=== PATIENT | female | born 1960 | race Caucasian/White ===

== ENCOUNTER → 2016-08-27 | Outpatient (CLI) | payer OTHER ==
--- NOTE | ~2016-08-27 | CR184 ---
[facility] A Service of [facility] RADIOLOGY TEXT RESULTS PATIENT: MARVIN STUBBS LOCATION: [facility] : 56 UNIT #: [id number] AGE: [address]: Lise Lovett MD SEX: F ORDER DR: [id number] [facility] [address] [place], [place] [address] [id number] O MR#: [id number] Acc #: [id number] NAME: MARVIN STUBBS : 1960 SEX: F STUDY DATE/TIME: 08/27/2016 15:30 UNIT: [facility] ROOM: STUDY DESCRIPTION: CR Lumbar Spine Min 4 Views Attending Physician: Lise Lovett M.D. Referring Physician: Lise Lovett M.D. Ordering Physician: Lise Lovett M.D. Primary Care Physician: Lise Lovett M.D. MEDICAL IMAGING REPORT This report is preliminary unless electronic signature is present EXAM Lumbosacral spine 08/27/1978 COMPARISON STUDIES None. HISTORY Pain. FINDINGS AP and lateral and flexion/extension views of the lumbar spine are obtained. The examination shows mild anterolisthesis of L4-5 by about 2-3 mm. This does not change significantly with flexion and extension. Disc spaces are preserved. There is advanced facet disease from L3-S1. CONCLUSION Grade 1 anterolisthesis of L4-5. Multilevel advanced facet disease. No evidence of motion with flexion/extension Dictated by... Dameon Church M.D. THIS IS AN ELECTRONICALLY VERIFIED REPORT Dameon Church M.D. at 08/28/2016 10:35 AM [email or web address]/[email or web address] TD: 08/27/2016 21:30 JOB #: [id number] MEDICAL IMAGING REPORT Page 1 of 1 COPY
== END | disposition home or self-care (01) ==
LOC: CRAD 14:56
DX: M54.40 Lumbago with sciatica, unspecified side (principal); M43.16 Spondylolisthesis, lumbar region
CPT/HCPCS: 72110

== ENCOUNTER → 2016-09-03 | Outpatient (CLI) | payer OTHER ==
--- NOTE | ~2016-09-03 | MY11 ---
[facility] A Service of [facility] RADIOLOGY TEXT RESULTS PATIENT: MARVIN STUBBS LOCATION: [facility] : 56 UNIT #: [id number] AGE: [address]: Lise Lovett MD SEX: F ORDER DR: [id number] [facility] [address] [place], [place] [address] [id number] O MR#: [id number] Acc #: [id number] NAME: MARVIN STUBBS : 1960 SEX: F STUDY DATE/TIME: 09/03/2016 8:28 UNIT: [facility] ROOM: STUDY DESCRIPTION: MY Mammogram Screening Dig [place] Attending Physician: Lise Lovett M.D. Referring Physician: Lise Lovett M.D. Ordering Physician: Lise Lovett M.D. Primary Care Physician: Lise Lovett M.D. MEDICAL IMAGING REPORT This report is preliminary unless electronic signature is present EXAM Digital screening mammogram 09/03/2016 HISTORY 56-year-old woman no risk elevation. Annual screen. COMPARISON 06/09/2007, 09/24/2012, 12/07/2014. FINDINGS Digital imaging of each breast was completed utilizing a two-view examination of each breast in craniocaudal and mediolateral-oblique projections. Review and interpretation of digital mammograms include a second review in conjunction with FDA-approved CAD device. There is a normal parenchymal presentation bilaterally consistent with the patient's age. There are no breast masses imaged and no parenchymal asymmetry is visualized. There are no suspicious microcalcifications and I see no focal architectural disturbance. IMPRESSION Negative screening digital mammogram. One-year followup recommended. ADDENDUM Breast parenchyma is predominantly fatty replaced. Patients over the age of 40 are entered into a reminder system with target due date for the next mammogram. A result letter will also be sent to the patient. BIRADS: 1 Negative [facility] A Service of [facility] RADIOLOGY TEXT RESULTS PATIENT: MARVIN STUBBS LOCATION: [facility] : 56 UNIT #: [id number] AGE: [address]: Lise Lovett MD SEX: F ORDER DR: Dictated by... Ashwin Ybarra M.D. THIS IS AN ELECTRONICALLY VERIFIED REPORT Ashwin Ybarra M.D. at 09/03/2016 10:53 AM ANTONIO/tory TD: 09/03/2016 09:58 JOB #: [id number] MEDICAL IMAGING REPORT Page 1 of 1 COPY
== END | disposition home or self-care (01) ==
LOC: CWCC 08:06
DX: Z12.31 Encounter for screening mammogram for malignant neoplasm of breast (principal); R92.8 Other abnormal and inconclusive findings on diagnostic imaging of breast
CPT/HCPCS: G0202